=== PATIENT | female | born 1965 | race Two or more races ===

== ENCOUNTER 2017-11-15 10:02 | Outpatient (CLI) | payer OTHER ==
[~2017-11-15 10:02] MED LIST: CADUET PO; CENESTIN0.9 MG; MAXIDE PO; PERCOCET 5-3251 EACH PO; PLAVIX75 MG PO; SYNTHROID125 MCG PO; ZIAC 10/6.25 MG1 TAB PO
== END 2017-11-15 10:17 | disposition home or self-care (01) ==
LOC: MAMO-SONO 10:02
DX: Z12.31 Encounter for screening mammogram for malignant neoplasm of breast (principal); N63.10 Unspecified lump in the right breast, unspecified quadrant; N63.20 Unspecified lump in the left breast, unspecified quadrant

== ENCOUNTER → 2017-11-27 | Outpatient (CLI) | payer OTHER | END | disposition home or self-care (01) | LOC: SONOGRAMA 13:18 | DX: N60.11 Diffuse cystic mastopathy of right breast (principal); N60.12 Diffuse cystic mastopathy of left breast ==

== ENCOUNTER 2018-06-28 13:56 | Outpatient (CLI) | payer OTHER | END 2018-06-28 14:18 | disposition home or self-care (01) | LOC: SONOGRAMA 13:56 | DX: E03.8 Other specified hypothyroidism (principal); E04.2 Nontoxic multinodular goiter; Z01.419 Encounter for gynecological examination (general) (routine) without abnormal findings; R10.2 Pelvic and perineal pain; R73.01 Impaired fasting glucose; N60.11 Diffuse cystic mastopathy of right breast; N60.12 Diffuse cystic mastopathy of left breast ==

== ENCOUNTER 2020-11-23 11:34 | Outpatient (CLI) | payer OTHER | END 2020-11-23 11:42 | disposition home or self-care (01) | LOC: MAMO-SONO 11:34 | PROVIDERS: ATTEND Obstetrics & Gynecology | DX: N60.11 Diffuse cystic mastopathy of right breast (principal); N60.12 Diffuse cystic mastopathy of left breast; Z12.31 Encounter for screening mammogram for malignant neoplasm of breast ==

== ENCOUNTER 2022-11-02 13:00 | Outpatient (CLI) | payer OTHER | END 2022-11-02 13:09 | disposition home or self-care (01) | LOC: MAMO-SONO 13:00 | PROVIDERS: ATTEND Internal Medicine | DX: E04.2 Nontoxic multinodular goiter (principal); N60.11 Diffuse cystic mastopathy of right breast ==

== ENCOUNTER 2024-09-24 09:03 | Outpatient (CLI) | payer OTHER | END 2024-09-24 09:13 | disposition home or self-care (01) | LOC: MAMO-SONO 09:03 | PROVIDERS: ATTEND Obstetrics & Gynecology | DX: Z12.31 Encounter for screening mammogram for malignant neoplasm of breast (principal); N60.11 Diffuse cystic mastopathy of right breast; N60.12 Diffuse cystic mastopathy of left breast; E04.1 Nontoxic single thyroid nodule ==